=== PATIENT | female | born 1945 | race Two or more races ===

== ENCOUNTER 2018-10-22 20:40 | Emergency (ER) | payer OTHER ==
[~2018-10-22] VITALS: Ht 162.6 cm; Wt 62.1 kg
[2018-10-23] MEDS ORDERED: ZOFRAN ODT4 MG PO (05:49)
[2018-10-23] MEDS ORDERED: LEVSIN/SL0.125 MG SL (05:49)
== END 2018-10-23 06:08 | disposition home or self-care (01) ==
LOC: ER 20:40
DX: K29.60 Other gastritis without bleeding (principal)